=== PATIENT | male | born 1990 ===

== ENCOUNTER 2017-11-27 16:11 | Emergency (ER) | payer OTHER ==
[2017-11-27 16:58] VITALS: BP 120/68; PULSE 73; RESP 18; TEMP 98.6; O2SAT 100
--- NOTE | 2017-11-27 18:07 | ED PDOC ---
Upper Extremity Pain/Injury Time Seen by Provider: 11/27/17 17:07 Chief Complaint (Nursing): Finger,Hand,&Wrist History Per: Patient Additional Complaint(s): Pt. states earlier today he punched a wall with his R hand and developed swelling and pain to the area. Denies numbness, tingling, other injury. Past Medical History Reviewed: Historical Data, Nursing Documentation, Vital Signs Vital Signs: Last Vital Signs Temp 98.6 F 11/27/17 16:55 Pulse 73 11/27/17 16:55 Resp 18 11/27/17 16:55 BP 120/68 11/27/17 16:55 Pulse Ox 100 11/27/17 16:55 - Family History Family History: States: No Known Family Hx - Allergies Allergies/Adverse Reactions: Allergies Allergy/AdvReac Type Severity Reaction Status Date / Time No Known Allergies Allergy Verified 11/27/17 16:54 Review of Systems ROS Statement: Except As Marked, All Systems Reviewed And Found Negative Musculoskeletal: Positive for: Hand Pain Physical Exam - Physical Exam Appears: Positive for: Well, Non-toxic, No Acute Distress Skin: Positive for: Normal Color, Warm. Negative for: Rash Pulses-Radial (L): 2+ Pulses-Radial (R): 2+ Extremity: Positive for: Other (R hand swelling and tenderness without deformity over 5th MCP; cap refill < 2 seconds to all fingers on R hand) Neurologic/Psych: Positive for: Alert, Oriented - ECG O2 Sat by Pulse Oximetry: 100 - Progress ED Course And Treament: Patient offers pain meds but refused. R hand x-ray: mininmally displaced R distal 5th MCP fx Hand immobilized with orthoglass ulnar gutter splint applied by coffee machine technician and adjusted by PA. Cap refill < 2 seconds of R 4th and 5th fingers. Case d/w Dr. Beltran who agrees with care and states pt. can f/u in his office. Pt. informed of plan and agrees. Disposition - Clinical Impression Clinical Impression: Hand fracture - Patient ED Disposition Is Patient to be Admitted: No - Disposition Referrals: Nani Beltran MD [Staff Provider] - [employer] [facility] Moncada [Outside] Disposition: Routine/Home Disposition Time: 18:07 Condition: STABLE Additional Instructions: Follow up with Dr. Beltran, orthopedist, for further evaluation this week. Instructions: Hand Fracture (DC) Forms: [employer] (Croatian), [facility] ED School/Work Excuse Print Language: CENTRAL AFRICAN
--- NOTE | 2017-11-28 07:56 | RAD ---
PROCEDURE: Right Hand Radiographs. HISTORY: trauma COMPARISON: None. FINDINGS: BONES: Boxer's fracture distal 5th right metacarpal bone with palmar angulation of the major fracture fragment. No dislocation identified or subluxation. No destructive bony lesion otherwise. JOINTS: Normal. No osteoarthritic changes. SOFT TISSUES: Limited local soft tissue edema is seen related to the fracture site. OTHER FINDINGS: None. IMPRESSION: Right 5th metacarpal boxer's fracture with mild palmar angulation but no dislocation.
== END 2017-11-27 18:30 | disposition home or self-care (01) ==
LOC: H.ER 16:11
DX: M79.89 Other specified soft tissue disorders (principal); S62.306A Unspecified fracture of fifth metacarpal bone, right hand, initial encounter for closed fracture; W22.01XA Walked into wall, initial encounter; Y92.89 Other specified places as the place of occurrence of the external cause